=== PATIENT | male | born 1960 | race Caucasian/White ===

== ENCOUNTER 2016-12-25 13:42 | Outpatient (CLI) | payer OTHER | END 2016-12-25 13:43 | disposition home or self-care (01) | DX: R06.00 Dyspnea, unspecified (principal); I51.9 Heart disease, unspecified; J98.11 Atelectasis ==

== ENCOUNTER 2016-12-25 14:42 | Emergency (ER) | payer OTHER ==
[2016-12-25] MEDS ORDERED: HEPARIN 5,000 UNIT/ML VIAL IVP ONE (15:09)
[2016-12-25] MEDS ORDERED: HEPARIN 25,000 UNITS/500 ML 500 ML IV STA (15:09)
[2016-12-25] MEDS ORDERED: NITROGLYCERIN 50 MG/250 ML 250 ML IV STA (15:09)
[2016-12-25] MEDS ORDERED: HEPARIN 5,000 UNIT/ML VIAL ONE (15:14)
[2016-12-25] MEDS ORDERED: NITROGLYCERIN 50 MG/250 ML 250 ML IV ONE (15:14)
[2016-12-25] MEDS ORDERED: HEPARIN 25,000 UNITS/500 ML 500 ML IV ONE (15:14)
[2016-12-25] MEDS ORDERED: FUROSEMIDE 40 MG/4 ML VIAL IVP STA (16:42)
[2016-12-25] MEDS ORDERED: FUROSEMIDE 40 MG/4 ML VIAL ONE (16:47)
== END 2016-12-25 20:45 | disposition short-term general hospital (02) ==
DX: I42.9 Cardiomyopathy, unspecified (principal); I51.7 Cardiomegaly; F17.200 Nicotine dependence, unspecified, uncomplicated

== ENCOUNTER 2016-12-25 20:44 | Outpatient (CLI) | payer OTHER | END 2016-12-25 20:45 | disposition short-term general hospital (02) | DX: R09.89 Other specified symptoms and signs involving the circulatory and respiratory systems (principal) | CPT/HCPCS: A0425; A0426 ==

== ENCOUNTER 2017-05-17 09:09 | Outpatient (CLI) | payer OTHER ==
[2017-05-17 09:48] LABS: IRON 82 ug/dL (45-182); TOTAL IRON BINDING CAPACITY 378 ug/dL (250-450); TRANSFERRIN 270 mg/dL (180-329)
[2017-05-17 09:59] LABS: THYROID STIMULATING HORMONE 2.5 uIU/mL (0.34-5.60)
[2017-05-17 10:05] LABS: FERRITIN 107.9 ng/mL (23.9-336.2)
[2017-05-19 14:10] LABS: ALPHA 1 GLOBULIN 0.3 g/dL (0.2-0.3); ALPHA 2 GLOBULIN 0.9 g/dL (0.5-0.9); BETA 1 GLOBULIN 0.6 g/dL (0.4-0.6); BETA 2 GLOBULIN 0.4 g/dL (0.2-0.5); GAMMA GLOBULIN 0.9 g/dL (0.8-1.7)
== END 2017-05-17 09:10 | disposition home or self-care (01) ==
LOC: LAB 09:09
PROVIDERS: ATTEND Internal Medicine Cardiovascular Disease
DX: I42.9 Cardiomyopathy, unspecified (principal); I50.22 Chronic systolic (congestive) heart failure
CPT/HCPCS: 36415; 82728; 83540; 84155; 84165; 84443; 84466

== ENCOUNTER 2017-09-03 09:38 | Day surgery (SDC) | payer OTHER ==
[2017-09-03] MEDS ORDERED: LACTATED RINGERS 1,000 ML IV ONE (09:44)
[2017-09-03] MEDS ORDERED: PROPOFOL 200 MG/20 ML VIAL IVP ONE (11:24)
[2017-09-03 12:24] VITALS: BP 130/88
== END 2017-09-03 09:39 | disposition home or self-care (01) ==
LOC: SDS 09:38
PROVIDERS: ATTEND Surgery
PROC: 0DBP8ZZ Excision of Rectum, Via Natural or Artificial Opening Endoscopic (ICD-10-PCS; principal; 2017-09-03 10:45)
DX: Z12.11 Encounter for screening for malignant neoplasm of colon (principal); D12.8 Benign neoplasm of rectum; K64.8 Other hemorrhoids; R09.02 Hypoxemia; I11.0 Hypertensive heart disease with heart failure; I50.9 Heart failure, unspecified; R06.83 Snoring; F17.290 Nicotine dependence, other tobacco product, uncomplicated; E78.5 Hyperlipidemia, unspecified; E66.01 Morbid (severe) obesity due to excess calories; Z68.41 Body mass index [BMI] 40.0-44.9, adult; G47.33 Obstructive sleep apnea (adult) (pediatric)
CPT/HCPCS: 45380; J7120; 88305

== ENCOUNTER 2017-10-05 18:38 | Outpatient (CLI) | payer OTHER ==
--- NOTE | 2017-10-05 22:36 | XRAY Report ---
EXAM: RIGHT SHOULDER RADIOGRAPHY EXAM DATE: 10/05/2017 06:41 PM. CLINICAL HISTORY: Right shoulder pain COMPARISON: None. TECHNIQUE: 3 views. FINDINGS: Bones: Normal. No fracture or bone lesion. Joints: The joint space is maintained. There is moderate acromioclavicular joint degenerative disease . Soft tissues: Small calcification at the superolateral margin of the humeral head likely reflects monica cific tendinopathy. IMPRESSION: 1. No fracture or dislocation. 2. There is moderate acromioclavicular joint degenerative disease. 3. There is calcific tendinopathy. [facility] Referring Provider Line: [phone] SITE ID: [id number]
== END 2017-10-05 18:39 | disposition home or self-care (01) ==
LOC: DI 18:38
PROVIDERS: ATTEND Family Medicine
DX: M19.011 Primary osteoarthritis, right shoulder (principal); M65.811 Other synovitis and tenosynovitis, right shoulder

== ENCOUNTER 2017-10-23 07:51 | Outpatient (CLI) | payer OTHER | END 2017-10-23 07:52 | disposition home or self-care (01) | LOC: DI 07:51 | PROVIDERS: ATTEND Family Medicine | DX: Z53.9 Procedure and treatment not carried out, unspecified reason (principal) ==

== ENCOUNTER 2018-03-07 19:43 | Outpatient (CLI) | payer OTHER ==
--- NOTE | 2018-03-08 04:18 | Ultrasound Report ---
Procedure Date: 03/07/2018 Accession Number: [id number] / [id number] Procedure: US - Carotid Doppler Complete CPT Code: FULL RESULT: EXAM: BILATERAL CAROTID AND VERTEBRAL ARTERY DUPLEX DOPPLER ULTRASOUND: EXAM DATE: 03/07/2018 08:40 PM CLINICAL HISTORY: Nonischemic cardiomyopathy, smoker. COMPARISON: None. TECHNIQUE: Grayscale imaging, color Doppler, and duplex spectral Doppler were used to evaluate the carotid and vertebral arteries bilaterally. Static images were obtained. FINDINGS: Minimal plaque is identified in the right and left common and internal carotid arteries. Normal antegrade flow is present in bilateral vertebral arteries. VELOCITIES (cm/sec): Right: RCCA Prox: PSV 115.7 cm/sec. RCCA Dist: PSV 78.4 cm/sec, EDV 20.3 cm/sec. RECA: PSV 61.4 cm/sec. R Bulb: PSV 61.4 cm/sec, EDV 12.4 cm/sec, ICA/CCA ratio .8. ESTELLA Prox: PSV 70.6 cm/sec, EDV 19.6 cm/sec, ICA/CCA ratio .9. ESTELLA Mid: PSV 73.9 cm/sec, EDV 32.7 cm/sec, ICA/CCA ratio .9. ESTELLA Dist: PSV 60.8 cm/sec, EDV 19.6 cm/sec, ICA/CCA ratio .8. RVA: PSV 73 cm/sec. RVA flow direction: Antegrade. Left: LCCA Prox: PSV 114.4 cm/sec. LCCA Dist: PSV 77.1 cm/sec, EDV 17.6 cm/sec. LECA: PSV 84.9 cm/sec. L Bulb: PSV 65.3 cm/sec, EDV 22.2 cm/sec, ICA/CCA ratio .8. LICA Prox: PSV 74.5 cm/sec, EDV 27.4 cm/sec, ICA/CCA ratio 1.0. LICA Mid: PSV 58.2 cm/sec, EDV 19 cm/sec, ICA/CCA ratio .8. LICA Dist: PSV 90.2 cm/sec, EDV 26 cm/sec, ICA/CCA ratio 1.2. LVA: PSV 49 cm/sec. LVA flow direction: Antegrade. ICA diameter stenosis: Right: <50% by velocity and <70% by NASCET criteria. Left: <50% by velocity and <70% by NASCET criteria. IMPRESSION: 1. Minimal bilateral carotid artery plaquing. 2. In the right carotid artery there are no elevated carotid artery velocities to suggest hemodynamically significant stenosis. 3. In the left carotid artery there are no elevated carotid artery velocities to suggest hemodynamically significant stenosis. 4. Normal antegrade flow is present in bilateral vertebral arteries. General Recommendations: Stenosis =50% ICA - Follow-up ultrasound 6-12 months Stenosis <50% ICA - High Risk Patient with plaque - Follow-up ultrasound 1-2 years Normal Study but High Risk Patient - Follow-up ultrasound 3-5 years Management recommendations and diagnostic criteria are based on current IAC endorsed standards in Carotid Artery Stenosis: Grayscale and Doppler Ultrasound Diagnosis. Validated velocity measurements with angiographic measurements and velocity criteria are extrapolated from diameter data as defined by the Society of Radiologists in Ultrasound Consensus Conference Radiology 2003; 229;340-346. [facility]
== END 2018-03-07 19:44 | disposition home or self-care (01) ==
LOC: DI 19:43
PROVIDERS: ATTEND Specialist
DX: I50.22 Chronic systolic (congestive) heart failure (principal); I42.8 Other cardiomyopathies; F17.200 Nicotine dependence, unspecified, uncomplicated
CPT/HCPCS: 93880

== ENCOUNTER 2018-12-30 03:12 | Emergency (ER) | payer OTHER ==
--- NOTE | 2018-12-30 03:38 | ED Physician Documentation ---
PD HPI TRUNK INJURY - Stated complaint Stated Complaint: BK PX - Chief complaint Chief Complaint: Trauma Ch/Bk - History obtained from History obtained from: Patient - History of Present Illness Location: Right chest Timing - onset: Yesterday Quality: Pain Worsened by: Palpating, Other (cough) Where injury occured: Home - Additional information Additional information: The patient is a 58-year-old male who complains of pain in his right lower chest wall. The pain started yesterday when he jumped from one stair landing to another. He felt like something "popped." His pain is worse with cough. He denies shortness of breath or fever. He denies abdominal pain, nausea or vomiting. He denies history of similar symptoms in the past. Social history is significant for cigarette smoking. Review of Systems Constitutional: denies: Fever Nose: denies: Congestion Throat: denies: Sore throat Cardiac: reports: Chest pain / pressure Respiratory: reports: Cough (chronic smoker's cough). denies: Dyspnea GI: denies: Abdominal Pain, Nausea, Vomiting : denies: Dysuria, Incontinent Skin: denies: Rash Musculoskeletal: denies: Neck pain, Extremity pain Neurologic: denies: Focal weakness, Numbness, Headache PD PAST MEDICAL HISTORY - Past Medical History Past Medical History: Yes Cardiovascular: Congestive heart failure, Hypertension Respiratory: None Endocrine/Autoimmune: None GI: None : None HEENT: None Psych: None Musculoskeletal: None Derm: None - Past Surgical History Past Surgical History: Yes Ortho: Knee replacement - Present Medications Home Medications: Ambulatory Orders Medication Instructions Recorded Confirmed Ascorbic Acid [Vitamin C] 1,000 mg PO DAILY 08/31/17 12/30/18 Aspirin [Adult Low Dose Aspirin EC] 81 mg PO DAILY 08/31/17 12/30/18 Atorvastatin Calcium 80 mg PO DAILY 08/31/17 08/31/17 Carvedilol 25 mg PO BID 08/31/17 12/30/18 Lisinopril 20 mg PO BID 08/31/17 12/30/18 Multivitamin [Multivitamins] 1 each PO DAILY 08/31/17 12/30/18 Spironolactone [Aldactone] 25 mg PO DAILY 08/31/17 12/30/18 HYDROcod/ACETAM 5/325 [Keene 5/325] 1 tab PO Q6H PRN #15 tablet 12/30/18 - Allergies Allergies/Adverse Reactions: Allergies Allergy/AdvReac Type Severity Reaction Status Date / Time No Known Drug Allergies Allergy Verified 12/30/18 03:21 - Living Situation Living Situation: reports: With spouse/s.o. - Social History Does the pt smoke?: Yes Smoking Status: Current every day smoker Does the pt drink ETOH?: Yes Does the pt have substance abuse?: No - Immunizations Immunizations are current?: Yes - POLST Patient has POLST: Yes PD ED PE NORMAL - Vitals Vital signs reviewed: Yes (normal) - General General: Alert and oriented X 3, Well developed/nourished, Other (overweight) - HEENT HEENT: Atraumatic - Neck Neck: No bony TTP - Cardiac Cardiac: RRR - Respiratory Respiratory: Clear bilaterally, Other (There is tenderness to palpation of the right lower chest wall in the posterior axillary line. There is no ecchymosis or break in the integument.) - Abdomen Abdomen: Soft, Non tender, Other (Rotund abdomen.) - Back Back: No CVA TTP, No spinal TTP - Derm Derm: No rash - Extremities Extremities: No edema, No calf tenderness / cord - Neuro Neuro: Alert and oriented X 3, No motor deficit, Normal speech Results - Vitals Vitals: Vital Signs - 24 hr 12/30/18 03:17 Heart Rate 77 Respiratory 18 Rate Blood Pressure 103/59 L O2 Saturation 97 Oxygen O2 Source Room air - Rads (name of study) right ribs with PA chest Radiology: Prelim report reviewed, EMP read contemporaneously, See rad report (Right ninth rib fracture.) PD MEDICAL DECISION MAKING - ED course Complexity details: reviewed results, re-evaluated patient, considered differential, d/w patient, d/w family ED course: The patient's presentation is consistent with fracture of the right ninth rib. There is no pneumothorax seen on chest x-ray. The fracture appears to be nondisplaced. Treatment in the emergency department included administration of Vicodin 1 tablet orally. He is being discharged with prescription for Vicodin, 15 tablets. I discussed with him and his the expected course of injury, symp tomatic treatment and outpatient follow-up, as well as potentially worrisome signs or symptoms that should prompt reevaluation in the emergency department. Departure - Departure Disposition: 01 Home, Self Care Clinical Impression: Fracture of rib Qualifiers: Encounter type: initial encounter Rib fracture type: single rib Fracture type: closed Laterality: right Qualified Code(s): S22.31XA - Fracture of one rib, right side, initial encounter for closed fracture Condition: Stable Instructions: ED Fx Rib Follow-Up: Gilberto Jung MD [Provider Admit Priv/Credential] - Prescriptions: HYDROcod/ACETAM 5/325 [Keene 5/325] 1 tab PO Q6H PRN #15 tablet PRN Reason: Pain Comments: You can use ibuprofen, up to 800 mg 3 times daily for its anti-inflammatory effect. You can use Vicodin as prescribed if needed for pain. Let pain be your guide to activity level. Follow-up with your primary physician within 2 weeks. Call to schedule an appointment. Return to the emergency department if you develop increasing difficulty breathing, or otherwise worsening since times.
--- NOTE | 2018-12-30 04:10 | XRAY Report ---
Reason: right lower chest wall injury. Procedure Date: 12/30/2018 Accession Number: [id number] / [id number] Procedure: XR - Ribs w/PA Chest RT CPT Code: FULL RESULT: EXAM: RIGHT RIB RADIOGRAPHY EXAM DATE: 12/30/2018 03:45 AM. CLINICAL HISTORY: Pain after injury. COMPARISON: CHEST 2 VIEW PA/LAT 12/25/2016 1:57 PM. TECHNIQUE: 1 view of the chest and 4 views of the ribs. FINDINGS: Bones: Fracture of the right ninth rib. Lungs: Mild bibasilar atelectasis. No pleural effusion seen. No pneumothorax. Mediastinum: Within exam limitations, cardiomediastinal silhouette is unremarkable. Other: None. IMPRESSION: 1. Right ninth rib fracture. [facility]
[2018-12-30] MEDS ORDERED: HYDROcod/ACETAM 5/325 MG TABLET PO STA (04:31)
[2018-12-30 04:52] VITALS: BP 109/69
== END 2018-12-30 04:52 | disposition home or self-care (01) ==
LOC: ED 03:12
DX: S22.31XA Fracture of one rib, right side, initial encounter for closed fracture (principal); X58.XXXA Exposure to other specified factors, initial encounter; Y93.39 Activity, other involving climbing, rappelling and jumping off; Y92.008 Other place in unspecified non-institutional (private) residence as the place of occurrence of the external cause; F17.200 Nicotine dependence, unspecified, uncomplicated; I10 Essential (primary) hypertension
CPT/HCPCS: 71101; 99283; A9270

== ENCOUNTER 2020-11-11 08:17 | Outpatient (CLI) | payer OTHER ==
[2020-11-11 09:30] VITALS: BP 121/70
--- NOTE | 2020-11-11 09:30 | SLEEP CARE CONSULTATION ---
Information from patient questionnaire entered by Funmi Bal. I have reviewed and concur with the information entered by Funmi Bal. This document represents the service I personally performed and the decisions made by me, Randi Momin ARNP. 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) Date of Onset: 3-4 years Usual bedtime: 12 am Time it takes to fall asleep: now, fall right to sleep Snores at night: Yes (some) Observed to quit breathing while asleep: Yes Sleeps alone due to snoring: No Number of times waking at night: 3-4 Reasons for waking at night: reports: Bathroom Toss, Turn, or Twitch while sleeping: No Recalls having dreams: Yes Usually gets out of bed at: 2-3 am Feels refreshed in the morning: No Morning headache: Yes (sometimes; 1 times a month) Sleepy or fatigued during the day: Yes Ever fallen asleep while driving: No Takes day naps: Yes (every weekend) Dreams during day naps: No Prior sleep studies: No Additional HPI information: I had the pleasure of seeing KING PEDERSEN today regarding the possibility of him having a sleep disorder. His current complaints are insomnia, unrefreshed sleep and frequent night awakenings. He states he does snore and his has told him he has pauses in breathing when asleep. He states he doesn't sleep very much. He goes to sleep after laying down about midnight and only sleeps 1-3 hours before he is up for the day. He is very tired during the day and can fall asleep after lunch most days. He denies drowsy driving. 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 Patient is and lives in [place]. Have you smoked in the past 12 months: Yes Cigarettes per day (20/pack): 3 (cigars) Years of smokin Smoking Pack Years: 1.8 Alcohol use: No Caffeine use: Yes Caffeine amount and frequency: 2 cups a day Family History Family history of sleep disordered breathing: No Allergies and Home Medications Drug allergies reviewed: Yes (NKDA) Home medication list reviewed: Yes Allergy and home medication list: Spirolactone Carvedilol Lisinopril Atorvastatin Vitamin C Aspirin Multivitamin Review of Systems Cardiovascular: denies: high blood pressure Gastrointestinal: denies: heartburn Neurological: denies: headaches Psychiatric: denies: anxiety, depression Ear/Nose/Throat: reports: wisdom teeth removed. denies: tonsillectomy Musculoskeletal: reports: joint pain Physical Exam Blood Pressure: 121/70 Cuff size: wrist Heart Rate: 74 O2 Saturation: 92 Height: 5 ft 9 in Weight: 283 lb Body Mass Index: 41.8 BMI Classification: Morbidly Obese Neck circumference: 19 (inches) Nostrils: patent to airflow Mouth and throat: narrow oropharynx Soft palate: long Hard palate: normal Uvula: normal Uvula visualization: 50% Mallampati Class II Tongue: enlarged in size with teeth rice on lateral edges Tonsils: 1+ Chin and jaw: normal size and position Heart: regular rate and rhythm Lungs: clear bilaterally Impression and Plan 1. Suspected Obstructive Sleep Apnea-Hypopnea Syndrome, as suggested by a history of loud and irregular snoring, observed cessation of breath while asleep, morning headache, frequent awakening during the night, unrefreshed sleep, and excessive daytime sleepiness. Narrow oropharynx and obesity are common predisposing factors for obstructive sleep apnea-hypopnea syndrome. I recommend proceeding to polysomnography to confirm the diagnosis and to assess severity. If the patient has significant sleep disordered breathing, a manual CPAP titration study will also be performed to find the optimal treatment pressure. I informed the patient of what the sleep studies involve and after some discussion, obtained agreement to proceed. The pathophysiology of obstructive sleep apnea-hypopnea syndrome was discussed with the patient and health risks of cardiovascular and cerebrovascular disease if not treated. 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 Patient agreed to plan. * Schedule polysomnography +- manual CPAP titration study and return in 1-2 weeks after the study to discuss result and initiate therapy. * Avoid long distance driving or driving when feeling sleepy. * Avoid alcohol, sedative and muscle relaxant around bedtime. * Attempt to lose weight. * Review instructions provided by trained office staff on how to prepare for the sleep study. * Return for follow-up after sleep study completed. Counseling Topics: Weight loss health impact Visit Type: In Office Time Spent with Patient (minutes): 32 Provider Statement: I spent 100% of the Face to Face Visit with the patient with greater than 50% spent counseling the patient and coordination of care.
== END 2020-11-11 08:18 | disposition home or self-care (01) ==
LOC: SC 08:17
PROVIDERS: ATTEND Nurse Practitioner Family
DX: G47.10 Hypersomnia, unspecified (principal); G47.8 Other sleep disorders; R06.83 Snoring; R06.81 Apnea, not elsewhere classified; E66.01 Morbid (severe) obesity due to excess calories; Z68.41 Body mass index [BMI] 40.0-44.9, adult; F17.290 Nicotine dependence, other tobacco product, uncomplicated; R51.9 Headache, unspecified
CPT/HCPCS: 99203; 99212

== ENCOUNTER 2020-11-11 09:38 | Outpatient (CLI) | payer OTHER ==
[2020-11-11 12:50] LABS: ALKALINE PHOSPHATASE 97 IU/L (42-121); ALT ALANINE AMINOTRANSFERASE 18 IU/L (10-60); AST ASPARTATE AMINOTRANSFERASE 13 IU/L (10-42); BILIRUBIN,TOTAL 0.9 mg/dL (0.2-1.0); BUN - BLOOD UREA NITROGEN 19 mg/dL (6-20); CALCIUM 9.6 mg/dL (8.5-10.3); CARBON DIOXIDE - CO2 28 mmol/L (21-32); CHLORIDE 96 mmol/L (101-111); CHOL/HDL RATIO 4.1 (<5.0); CHOLESTEROL 159 mg/dL; GFR - MDRD 77 (>89); GLUCOSE 93 mg/dL (70-100); HDL CHOLESTEROL 39 mg/dL; LDL CHOLESTEROL,CALCULATED 100 mg/dL; LDL/HDL RATIO 2.6 (<3.6); POTASSIUM 4.6 mmol/L (3.5-5.0); SODIUM 133 mmol/L (135-145); TRIGLYCERIDES 101 mg/dL; VLDL CHOLESTEROL 20 mg/dL
== END 2020-11-11 09:39 | disposition home or self-care (01) ==
LOC: LAB.N 09:38
PROVIDERS: ATTEND Family Medicine
DX: E78.2 Mixed hyperlipidemia (principal)
CPT/HCPCS: 36415; 80053; 80061; 83721

== ENCOUNTER 2020-11-30 08:54 | Outpatient (CLI) | payer OTHER | END 2020-11-30 08:55 | disposition home or self-care (01) | LOC: SC 08:54 | PROVIDERS: ATTEND Nurse Practitioner Family | DX: G47.33 Obstructive sleep apnea (adult) (pediatric) (principal); R09.02 Hypoxemia; E66.01 Morbid (severe) obesity due to excess calories; Z68.41 Body mass index [BMI] 40.0-44.9, adult | CPT/HCPCS: 95806 ==

== ENCOUNTER 2020-12-09 09:18 | Outpatient (CLI) | payer OTHER ==
--- NOTE | 2020-12-09 09:36 | SLEEP CARE CONSULTATION ---
Information from patient questionnaire entered by Funmi Bal. I have reviewed and concur with the information entered by Funmi Bal. This document represents the service I personally performed and the decisions made by , Randi Momin ARNP. History of Present Illness Service Date and Time: 12/09/2020917 Initial [place] Sleepiness Scale score: 7 (in 2020) Current [place] Sleepiness Scale score: 5 Additional HPI information: KING PEDERSEN returns for follow up and results of the recently performed home sleep study. I explained the pathophysiology behind obstructive sleep apnea. We then spent quite a bit of time discussing different treatment options. For mild obstructive sleep apnea, surgery and oral appliance are alternatives to nasal CPAP therapy but in moderate or severe cases, nasal CPAP is the most effective and reliable treatment. Because apnea is primarily in supine position, then positional management therapy could be effective. Methods discussed such as positioning with pillows, using a T-shirt with tennis balls in the back, and shown commercial products that have a pillow format on back to prevent supine sleep. I reviewed the impact of weight changes on sleep apnea and strongly recommended losing weight. After some discussion, the patient opted to go with the nasal CPAP therapy. Nasal autoCPAP set at 4-15 cmH20 will be ordered with rationale explained. A manual titration study will be ordered if unable to find optimal pressure with office adjustments. I explained how CPAP machine works and what to expect when using the machine. Using CPAP every night in order to get used to it was emphasized. Patient advised to put CPAP mask on before getting into bed so as not to fall asleep without CPAP. To assist acclimation to CPAP use, it could also be used for a short time during day while reading or watching TV. The patient was instructed to call the CPAP supplier to discuss any mechanical problem that may occur. If the mask given is uncomfortable or is difficult to keep on through the night even with adjustment, contact the CPAP supplier as many will replace with another mask style if notified before 30 days. If snoring or perceives is not getting enough air or too much air from the machine, notify this office. Patient was cautioned about risks of drowsy driving until sleepiness symptoms resolve. Sleep Study - Results Type of Sleep Study: Home sleep study Prior sleep studies: No Polysomnography/Home Sleep Study results: Physician Impression: The quality of the study is good. The length of the study is [id number]. Please also see the tabulated and graphic data. 1. Obstructive Sleep Apnea-Hypopnea (ICD-10 G47.33), very severe, with an AHI of 60.7/hr and rocío SaO2 of 78%. During the study, the patient had 130 apneas (127 obstructive, 2 central, 1 mixed) and 1 hypopneas. The longest episode lasted 191.5 seconds. The patient only slept supine during this study (supine AHI was 60.7 and non-supine, 0.00). 2. Hypoxemia (ICD-10 R09.02), moderate, with the lowest oxygen saturation of 78 % and 57.5 minutes with SaO2 under 90%. Baseline oxygen saturation was low (Average oxygen saturation was 89%). 3. Tachycardia, with maximum recoded heart rate of 190 beats per minute (cannot be verified). Allergies and Home Medications Home medication list reviewed: Yes (no new meds) Review of Systems Review of systems same as previous: Yes (no changes) Physical Exam Vital signs obtained and entered by: Telehealth visit to reduce exposure during Covid pandemic Height: 5 ft 9 in Impression and Plan 1. Obstructive Sleep Apnea-Hypopnea Syndrome, very severe, with lowest oxygen saturation of 78%. Obviously this is the cause of the patients symptoms of unrefreshed sleep, and excessive daytime sleepiness. Positive pressure therapy could benefit congestive heart failure. As mentioned above, the patient will be started on nasal autoCPAP therapy with pressure set at 4-15 cmH2O. A manual titration study will be completed if unable to find optimal treatment pressure with office adjustments. Compliance guidelines also reviewed. A copy of compliance guidelines will be given for reference at check out. Because the apnea is more severe supine, I instructed to avoid sleeping supine using pillow positioning until able to start CPAP use. * Nasal auto CPAP therapy, pressure at 4-15 cm H2O. * Attempt to lose weight. * Avoid alcohol consumption near bedtime. * Avoid supine sleep until using CPAP. * The patient is again cautioned about driving until sleepiness completely resolves. * Return one month after CPAP obtained. I will assess response to therapy and compliance at that time. Counseling Topics: Weight loss health impact Visit Type: Telehealth Video Video Type: VSee Patient Location: Home Location of Provider: Office Patient agrees and consents to this telehealth visit type: Yes Patient agrees to have their insurance billed: Yes Time Spent with Patient (minutes): 16 Provider Statement: I spent 100% of the Telehealth Video Call with the patient with greater than 50% spent counseling the patient and coordination of care.
== END 2020-12-09 09:19 | disposition home or self-care (01) ==
LOC: SC 09:18
PROVIDERS: ATTEND Nurse Practitioner Family
DX: G47.33 Obstructive sleep apnea (adult) (pediatric) (principal); R09.02 Hypoxemia; R00.0 Tachycardia, unspecified

== ENCOUNTER 2023-03-22 08:14 | Outpatient (CLI) | payer OTHER | END 2023-03-22 08:15 | disposition home or self-care (01) | LOC: DI 08:14 | PROVIDERS: ATTEND Student in an Organized Health Care Education/Training Program | DX: I50.9 Heart failure, unspecified (principal); I51.7 Cardiomegaly | CPT/HCPCS: 93306 ==

== ENCOUNTER 2023-04-12 09:14 | Outpatient (CLI) | payer OTHER ==
[2023-04-12 09:23] LABS: BASOPHILS % (AUTO) 0.4 %; EOSINOPHILS # (AUTO) 0.2 10^3/uL (0.0-0.7); EOSINOPHILS % (AUTO) 2.5 %; HCT - HEMATOCRIT 48.1 % (42.0-52.0); HGB - HEMOGLOBIN 15.1 g/dL (14.0-18.0); LYMPHOCYTES # (AUTO) 2.2 10^3/uL (1.5-3.5); LYMPHOCYTES % (AUTO) 23.5 %; MEAN CORPUSCULAR HEMOGLOBIN 28.2 pg (27.0-31.0); MEAN CORPUSCULAR HGB CONC 31.4 g/dL (32.0-36.0); MEAN CORPUSCULAR VOLUME 89.7 fL (80.0-94.0); MEAN PLATELET VOLUME 9.9 fL (7.4-11.4); MONOCYTES # (AUTO) 0.6 10^3/uL (0.0-1.0); MONOCYTES % (AUTO) 6.8 %; NEUTROPHILS # (AUTO) 6.2 10^3/uL (1.5-6.6); NEUTROPHILS % (AUTO) 66.7 %; PLT - PLATELET COUNT 237 10^3/uL (130-450); RED BLOOD COUNT 5.36 10^6/uL (4.70-6.10); RED CELL DISTRIBUTION WIDTH 14.5 % (12.0-15.0); WHITE BLOOD COUNT 9.3 x10^3/uL (4.8-10.8)
== END 2023-04-12 09:15 | disposition home or self-care (01) ==
LOC: LAB 09:14
PROVIDERS: ATTEND Internal Medicine Gastroenterology
DX: I50.40 Unspecified combined systolic (congestive) and diastolic (congestive) heart failure (principal)
CPT/HCPCS: 36415; 85025

== ENCOUNTER 2024-01-15 12:26 | Outpatient (CLI) | payer OTHER ==
[2024-01-15 13:28] LABS: CALCIUM 9.5 mg/dL (8.5-10.3); POTASSIUM 4.3 mmol/L (3.5-4.5)
--- NOTE | 2024-01-15 17:07 | CT Report ---
PROCEDURE: Abdomen W/WO INDICATIONS: R ADRENAL NODULE CONTRAST: Omni 300 125ml TECHNIQUE: [address] scan of the adrenal glands was performed. Non-contrast and multiphasic contrast images wer e recorded and evaluated at appropriate window settings. Reformats: coronal and sagittal. For radiati on dose reduction, the following was used: automated exposure control, adjustment of mA and/or kV acc ording to patient size. COMPARISON: None. FINDINGS: Image quality: Diagnostic. Lower chest: Unremarkable. Liver: No solid mass. Gallbladder and biliary tree: No radiopaque stones or wall thickening. No biliary dilation. Spleen: No splenomegaly. Pancreas: No pancreatic ductal dilation. Adrenal Glands: 5 cm right adrenal nodule with heterogeneous attenuation. Washout measures 68%. Small focus of calcification is present. Kidneys and ureters: No hydronephrosis. No renal cystic lesion which requires follow up. No solid mas s. Stomach, bowel and peritoneum: No bowel distension. No pathologic free fluid. Lymph nodes: No central or retroperitoneal adenopathy. Vessels: No infrarenal aortic aneurysm. Bones: No aggressive osseous abnormality. Other: None. IMPRESSION: 5 cm right adrenal nodule with a small focus of calcification. While the washout criteria is favorabl e for a benign adrenal adenoma, the size and appearance of calcification is worrisome for adrenal cor tical carcinoma. Consider tissue sampling. Reviewed by: Malik Johnson MD on 01/15/2024 5:05 PM PDT Approved by: Malik Johnson MD on 01/15/2024 5:05 PM PDT Station ID: [id number]
== END 2024-01-15 12:27 | disposition home or self-care (01) ==
LOC: LAB 12:26
PROVIDERS: ATTEND Student in an Organized Health Care Education/Training Program
DX: E27.9 Disorder of adrenal gland, unspecified (principal); E27.49 Other adrenocortical insufficiency
CPT/HCPCS: 36415; 80048